=== PATIENT | male | born 1985 | race Asian ===

== ENCOUNTER 2019-08-25 09:25 | Emergency (ER) | payer OTHER ==
[2019-08-25 09:32] VITALS: BP 137/83; PULSE 68; TEMP 97.9; BMI 24.5
--- NOTE | 2019-08-25 11:23 | PDOC ---
History of Present Illness - General Chief Complaint: Laceration Stated Complaint: RT. 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 Patient reported last tetanus vaccine 2 years ago Timing/Duration: reports: just prior to arrival Past History - Past Medical History Allergies/Adverse Reactions: Allergies Allergy/AdvReac Type Severity Reaction Status Date / Time No Known Allergies Allergy Verified 08/25/19 09:32 Home Medications: Ambulatory Orders Cephalexin Monohydrate [Keflex -] 500 mg PO BID 7 Days #14 capsule 08/25/19 Ibuprofen [Motrin -] 600 mg PO Q8H PRN #20 tablet 08/25/19 COPD: No - Immunization History Immunization Up to Date: No - Psycho Social/Smoking Cessation Hx Smoking History: Current every day smoker Have you smoked in the past 12 months: Yes Information on smoking cessation initiated: No Hx Alcohol Use: No Drug/Substance Use Hx: No Review of Systems - Review of Systems Able to Perform ROS?: Yes Is the patient limited Wolof proficient: No Constitutional: No: Chills, Fever, Malaise HEENTM: No: Symptoms Reported Respiratory: No: Symptoms reported Cardiac (ROS): No: Symptoms Reported ABD/GI: No: Symptoms Reported Musculoskeletal: Yes: Symptoms Reported, See HPI, Muscle Pain (pain over laceration to right hand) Integumentary: Yes: Symptoms Reported, See HPI, Other (laceration to palm of right hand) Neurological: No: Symptoms reported, Numbness, Paresthesia, Tingling, Weakness All Other Systems: Reviewed and Negative *Physical Exam - Vital Signs Last Vital Signs Temp Pulse Resp BP Pulse Ox 97.9 F 68 18 137/83 100 08/25/19 09:29 08/25/19 09:29 08/25/19 09:29 08/25/19 09:29 08/25/19 09:29 - Physical Exam 08/25/19 11:25 GENERAL: Well developed, well nourished. Awake and alert. No acute distress. PULMONARY: No evidence of respiratory distress. MUSCULOSKELETAL : mild tenderness over palmar aspect of right hand over 2 areas of linear laceration. Full range of motion of right hand and fingers. 5 out of 5 muscle strength to right hand and fingers. No visible deformity. SKIN: Warm and dry. Normal capillary refill. 3 cm linear superficial laceration to palmar aspect of right hand with minimal bleeding. Another 1 cm linear laceration to palm of right hand with no bleeding. NEUROLOGICAL: Alert, awake, appropriate. No motor deficits in the lower extremities. Gait is normal without ataxia. PSYCHIATRIC: Cooperative. Good eye contact. Appropriate mood and affect. General Appearance: Yes: Nourished, Appropriately Dressed. No: Apparent Distress Procedures - Laceration/Wound Repair Right Anterior Plantar Hand Wound Length: 2.6 to 5.0 cm (3cm) Wound Explored: no foreign body present Wound's Depth, Shape: superficial, linear Irrigated w/ Saline: Yes Betadine Prep: Yes Anesthesia: 1% Lidocaine Amount of Anesthetic (ccs): 3 Wound Repaired With: Sutures Suture Size/Type: 4:0 Number of Sutures: 6 Layer Closure: No Sterile Dressing Applied: Yes Splint Applied: No Sling Applied: No Right Anterior Hand Wound Length: to 2.5 cm (1cm) Wound Explored: no foreign body present Wound's Depth, Shape: superficial, linear Irrigated w/ Saline: Yes Betadine Prep: Yes Anesthesia: 1% Lidocaine Amount of Anesthetic (ccs): 1 Wound Repaired With: Sutures Suture Size/Type: 4:0, nylon Number of Sutures: 2 Sterile Dressing Applied: Yes Splint Applied: No Sling Applied: No Medical Decision Making - Medical Decision Making 08/25/19 11:19 Patient with no significant past medical history present with complaint of 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 Patient reported last tetanus vaccine 2 years ago Exam significant for 3 cm linear superficial laceration to palm of right hand with minimal bleeding. Another 1 cm laceration to palm of right hand with no bleeding. Wound cleaned and irrigated with normal saline. Wound cleaned with Betadine and infiltrated with 3 cc 1% lidocaine and closed with 6 interrupted 4-0 nylon suture to 3 cm laceration and another 2 interrupted sutures to 1 cm laceration. Patient tolerated procedure well. Bacitracin applied to wound and wound covered with adhesive bandage. Patient stable for discharge on Keflex antibiotic for infection prophylaxis and educated on home wound care with bacitracin being applied to wound twice daily and follow-up in 1 week for suture removal. Patient stable for discharge Discharge - Discharge Information Problems reviewed: Yes Clinical Impression/Diagnosis: Laceration of right hand Qualifiers: Encounter type: initial encounter Foreign body presence: without foreign body Qualified Code(s): S61.411A - Laceration without foreign body of right hand, initial encounter Condition: Stable Disposition: HOME - Admission No - Additional Discharge Information Prescriptions: Cephalexin Monohydrate [Keflex -] 500 mg PO BID 7 Days #14 capsule Ibuprofen [Motrin -] 600 mg PO Q8H PRN #20 tablet PRN Reason: pain - Follow up/Referral - Patient Discharge Instructions Patient Printed Discharge Instructions: DI for Laceration Repair Additional Instructions: Keep wound clean and dry for the next 24 hours. Apply bacitracin to wound twice a day. Take prescribed antibiotics and finish it and take prescribed Motrin as needed for pain. Follow-up in 1 week for suture removal - Post Discharge Activity
== END 2019-08-25 11:25 | disposition home or self-care (01) ==
LOC: JERFT 09:25
PROC: 0HQFXZZ Repair Right Hand Skin, External Approach (ICD-10-PCS; principal; 2019-08-25)
DX: S61.411A Laceration without foreign body of right hand, initial encounter (principal); W26.0XXA Contact with knife, initial encounter; Y93.89 Activity, other specified; Y92.9 Unspecified place or not applicable; Y99.0 Civilian activity done for income or pay
CPT/HCPCS: 99282-25